=== PATIENT | female | born 1975 | race Caucasian/White ===

== ENCOUNTER 2017-12-16 12:26 | Emergency (ER) | payer OTHER ==
[2017-12-16] MEDS ORDERED: Amoxicillin/Potassium Clav 875 MG TAB ONE (12:45)
== END 2017-12-16 12:57 | disposition home or self-care (01) ==
LOC: BURERS 12:26
DX: N61.0 Mastitis without abscess (principal); F17.210 Nicotine dependence, cigarettes, uncomplicated
CPT/HCPCS: 99283